=== PATIENT | male | born 1980 | race American Indian/Alaskan Native ===

== ENCOUNTER 2017-03-16 11:59 | Day surgery (SDC) | payer OTHER ==
[2017-03-16] MEDS ORDERED: ceFAZolin 2 GM in NACL 0.9% 100 ML IV NR (13:05)
--- NOTE | 2017-03-16 13:05 | Short Stay Summary ---
Short Stay Documentation Date of service: 03/16/17 - History H&P: obtained from office - Allergies and Medications Current Medications: Allergies No Known Allergies Allergy (Verified 03/08/17 14:32) Home Medications Medication Instructions Recorded Confirmed Last Taken Type No Known Home Medications [No 03/08/17 03/08/17 Unknown History Reported Home Medications] - Brief post op/procedure progress note Date of procedure: 03/16/17 Pre-op diagnosis: righthydrocele Post-op diagnosis: same Procedure: rt hydrocelectomy Anesthesia: GETA Findings: no dev Surgeon: IFTIKHAR YAN Estimated blood loss: minimal Pathology: list (tunica vaginalis) Specimen disposition: to lab Condition: stable - Hospital course Hospital course: orpacuhome - Disposition Condition at discharge: Good Disposition: DC- TO HOME OR SELFCARE Short Stay Discharge Plan Activity: advance as tolerated Diet: advance as tolerated Follow up with: IFTIKHAR YAN MD [Staff Physician] - 7 Days
[2017-03-16] MEDS ORDERED: NACL BACTERIOSTATIC INFILTRATI ONE (13:12)
[2017-03-16] MEDS ORDERED: LACTATED RINGERS 1,000 ML ONE (13:57)
[2017-03-16] MEDS ORDERED: ZOFRAN IV PRN (14:07)
--- NOTE | 2017-03-16 14:08 | Anesthesia Day of Surgery ---
Anesthesia Day of Surgery - Day of Surgery Patient Examined: Yes Patient H&P Reviewed: Yes Patient is NPO: Yes
--- NOTE | 2017-03-16 14:09 | Anesthesia Consultation ---
Anesthesia Consult and Med Hx Date of service: 03/16/17 - Airway Anesthetic Teeth Evaluation: Good ROM Head & Neck: Adequate Mental/Hyoid Distance: Adequate Mallampati Class: Class II Intubation Access Assessment: Probably Good - Pulmonary Exam CTA: Yes - Pre-Operative Health Status ASA Pre-Surgery Classification: ASA2 Proposed Anesthetic Plan: General - Pulmonary Hx Smoking: Yes (ONE CIGAR PER DAY) Hx Sleep Apnea: No (LAZ PRE SCREEN LOW RISK.) - Cardiovascular System Hx Hypertension: No - Other Systems Hx Alcohol Use: Yes Hx Cancer: No
[2017-03-16] MEDS ORDERED: DIPRIVAN 10 MG/ML IV ONE (14:49)
[2017-03-16] MEDS ORDERED: SUBLIMAZE ONE (14:49)
[2017-03-16] MEDS ORDERED: XYLOCAINE MPF 2% ONE (14:55)
[2017-03-16] MEDS ORDERED: LACTATED RINGERS 1,000 ML IV SCH ×2 (15:00)
[2017-03-16] MEDS ORDERED: MARCAINE 0.25% INFILTRATI ONE ×2 (15:18→15:43)
[2017-03-16] MEDS ORDERED: ZOFRAN ONE (15:34)
[2017-03-16] MEDS ORDERED: NACL 0.9% IR ONE (15:43)
[2017-03-16] MEDS ORDERED: ePHEDrine SULFATE ONE (15:53)
[2017-03-16] MEDS ORDERED: TRIPLE ANTIBIOTIC TP ONE ×2 (16:24→16:27)
[2017-03-16] MEDS: DILAUDID IV PRN ×2 (17:05→17:15)
[2017-03-16] MEDS ORDERED: NORCO 10/325 PO PRN (18:12)
[2017-03-16 19:22] VITALS: BP 139/90
--- NOTE | 2017-03-17 09:36 | Operative Report ---
PREOPERATIVE DIAGNOSIS: Right hydrocele. POSTOPERATIVE DIAGNOSIS: Right hydrocele. PROCEDURE: Right hydrocelectomy. COMPLICATIONS: None. PATHOLOGY SPECIMENS: Tunica vaginalis. ESTIMATED BLOOD LOSS: Minimal. IMPLANTS: None. CLINICAL INDICATIONS: The patient counseled [facility], he had had aspiration, had counseled on this procedure, risk included but not exclusive of chronic pain, loss of testicle, infection. DESCRIPTION OF PROCEDURE: The patient was transferred to OR suite in supine position, anesthesia, dorsal lithotomy, prepped and draped in standard fashion. A transverse scrotal incision was made approximately 2 cm. We began our sharp dissection with electrocautery through the epidermis, dermis, dartos layer. We identified a very large hydrocele sac, this was bluntly and sharply dissected from the underlying scrotum. We at this point deflated the sac, so that we did not have to make a larger incision. Sac was deflated some and then removed. At this point, the hydrocele sac was opened, we then sharply went with electrocautery, dissected and removed some of the large hydrocele sac. Next, using 4-0 Vicryl sutures, we approximated the edge of the sacs area that were vascular and bleeding. These edges were sutured and then tacked in such a position not to fold or close again. At this point, the area was irrigated and flushed. A quarter-inch stab incision was placed through the inferior scrotum, quarter-inch [place] was secured with 2-0 silk. At this point, the skin closure was begun, we did ____ testicle, seemed to have some rotation, so suture placed to hold in position. At this point, we used a running 4-0 chromic for the deeper dartos layer and then epidermis, dermis, into the deeper layer running 3-0 chromic with some interrupted 4-0 Vicryl. The patient was cleaned with Neosporin, scrotal support. The patient awakened and transferred to PACU in good and stable condition. JOB# [id number] ATS/NTS
== END 2017-03-16 12:00 | disposition home or self-care (01) ==
LOC: OR 11:59
PROVIDERS: ATTEND Urology
DX: N43.3 Hydrocele, unspecified (principal); M79.89 Other specified soft tissue disorders; I10 Essential (primary) hypertension; F17.290 Nicotine dependence, other tobacco product, uncomplicated
CPT/HCPCS: 55040; 88302; J1170; J2405; J2704; J3010; J7120; A6250